=== PATIENT | female | born 1950 | race Caucasian/White ===

== ENCOUNTER 2017-06-08 10:30 | Emergency (ER) | payer OTHER ==
[~2017-06-08] VITALS: Ht 162.6 cm; Wt 72.6 kg
[2017-06-08] MEDS ORDERED: ACETAMINOPHEN 325 MG TAB PO ONE (11:00)
[2017-06-08 11:42] LABS: Basophils # (auto) 0 uL; Basophils % (auto) 0.2 % (0.0-2.0); Eosinophils # (auto) 0 uL; Hematocrit 39.7 % (36.0-46.0); Hemoglobin 13.5 g/dL (12.2-16.2); Lymphocytes # (auto) 1.1 uL; Lymphocytes % (auto) 13.7 % (10.0-50.0); Mean Corpuscular Hemoglobin 31.2 pg (28.0-32.0); Monocytes # (auto) 0.5 uL; Monocytes % (auto) 6.6 % (0.0-12.0); Neutrophils # (auto) 6.5 uL; Neutrophils % (auto) 79.5 % (37.0-80.0); Platelet Count (auto) 139 10^3/uL (140-450); White Blood Cell 8.1 10^3/uL (4.4-10.8)
[2017-06-08 11:56] LABS: Albumin 3.6 g/dL (3.4-5.0); Alkaline Phosphatase 81 U/L (45-117); Anion Gap 9 (5-15); Aspartate Aminotransferase 28 U/L (15-37); BUN/Creatinine Ratio 12.6; Bilirubin, Total 0.4 mg/dL (0.2-1.0); Blood Urea Nitrogen 13 mg/dL (7-18); Calcium 8.4 mg/dL (8.5-10.1); Carbon Dioxide 24 mmol/L (21-32); Chloride 108 mmol/L (98-107); GFR African American 69 mL/min; GFR Non-African American 57 mL/min; Glucose 109 mg/dL (74-106); Lactic Acid w/Reflex 2.3 mmol/L (0.4-2.0); Magnesium 2.5 mg/dL (1.6-2.6); Potassium 4.1 mmol/L (3.5-5.1); Sodium 141 mmol/L (136-145); Total Protein 7.5 g/dL (6.4-8.2)
[2017-06-08] MEDS ORDERED: BUPRTAB3 PO (11:59)
[2017-06-08] MEDS ORDERED: HYDR-4683 PO (11:59)
[2017-06-08] MEDS ORDERED: OLAN20TA13 PO (12:03)
[2017-06-08] MEDS ORDERED: DOCU-94 PO (12:03)
[2017-06-08] MEDS ORDERED: TRAZ150T79 PO (12:03)
[2017-06-08] MEDS ORDERED: TIZA4TAB9 PO (12:03)
[2017-06-08] MEDS ORDERED: GABA600T PO (12:03)
[2017-06-08 12:19] LABS: REFLEX LACTIC ACID YES OR NO YES
[2017-06-08 14:25] LABS: Urine Bilirubin Negative (Negative); Urine Blood 1+ /uL (Negative); Urine Color Yellow (Yellow); Urine Glucose Normal (Normal); Urine Hyaline Cast FEW /lpf (0 - 2); Urine Ketone Negative (Negative); Urine Mucus FEW (None Seen); Urine Nitrite Negative (Negative); Urine RBC 5 /hpf (0 - 4); Urine Squamous Epithelial Cell FEW /hpf (<5); Urine Urobilinogen Normal (Negative)
[2017-06-08 15:22] VITALS: BP 103/63
== END 2017-06-08 16:15 | disposition home or self-care (01) ==
LOC: ER 10:30
DX: G89.29 Other chronic pain (principal); M54.5 Low back pain; R42 Dizziness and giddiness; R41.82 Altered mental status, unspecified; Z88.1 Allergy status to other antibiotic agents; Z88.6 Allergy status to analgesic agent; Z90.710 Acquired absence of both cervix and uterus; Z79.899 Other long term (current) drug therapy; W18.39XA Other fall on same level, initial encounter; Y93.89 Activity, other specified; Y92.89 Other specified places as the place of occurrence of the external cause; Y99.8 Other external cause status
CPT/HCPCS: 36415; 71010; 72100; 80053; 81001; 83605; 83735; 84484; 85025; 87040; 93005; 94761

== ENCOUNTER 2025-07-12 11:02 | Emergency (ER) | payer OTHER, MEDICAID ==
[~2025-07-12] VITALS: Ht 165.1 cm; Wt 64.4 kg
[~2025-07-12 11:02] MED LIST: BUPRTAB3 PO; DOCU-94 PO; GABA600T PO; HYDR-4833 PO; OLAN20TA PO; TIZA4TAB9 PO; TRAZ1TAB12 PO
[2025-07-12 11:16] VITALS: BP 128/82; PULSE 87; RESP 20; TEMP 98; O2SAT 97
--- NOTE | 2025-07-12 11:28 | ED.PDOC ---
Arturo. trauma (HPI) HPI Comments A 75 YEAR OLD FEMALE PRESENTS TO THE ED WITH COMPLAINT OF LOWER BACK PAIN AND HEADACHE STATUS POST FALL. PATIENT STATES SHE ACCIDENTALLY TRIPPED AND FELL WHEN WALKING DOWN THE HALLWAY 6 DAYS AGO. PATIENT REPORTS SHE FELL BACKWARDS IN HIS NOW EXPERIENCING LOWER BACK PAIN AND A HEADACHE DUE TO HITTING HER HEAD ON THE GROUND. PATIENT NOTES THAT SHE HAS A HISTORY OF CHRONIC BACK PAIN AND HAS A PAIN PUMP THAT INFUSES DILAUDID FOR PAIN MANAGEMENT. PATIENT DENIES SADDLE ANESTHESIA, URINARY INCONTINENCE, NECK INJURY, LOC, BOWEL INCONTINENCE, FEVER, CHILLS, SHORTNESS OF BREATH, CHEST PAIN, ABDOMINAL PAIN, NAUSEA, VOMITING, OR OTHER COMPLAINTS. NO OTHER SYMPTOMS OR MODIFYING FACTORS AT THIS TIME. PATIENT IS ALERT, ORIENTED X 4, AND HAS STEADY GAIT. Chief Complaint: Fall Injury Time Seen by MD: 11:07 Primary Care Provider: LUCAS Reviewed notes: Nurses Notes, Medications, Allergies Allergies: Coded Allergies: Levofloxacin (Verified Allergy, Unknown, 06/08/17) Morphine (Verified Allergy, Unknown, 06/08/17) Uncoded Allergies: PLASTIC (Allergy, Unknown, 06/08/17) EMERALD (Allergy, Unknown, 06/08/17) TAPE (Allergy, Unknown, 06/08/17) Home Meds Reported Medications Docusate Sodium (Colace) 100 Mg Cap, 300 MG PO HS, CAP 06/08/17 Trazodone Hcl (Trazodone Hcl) 150 Mg Tab, 1 TAB PO QPM, #30 TAB 1 Refill 06/08/17 Gabapentin (Neurontin) 600 Mg Tab, 800 MG PO TID, TAB 06/08/17 Olanzapine (Zyprexa) 20 Mg Tab, 45 MG PO HS, TAB 06/08/17 Tizanidine Hydrochloride (Zanaflex) 4 Mg Tab, 4 MG PO HS, TAB 06/08/17 Bupropion HCl (Wellbutrin Xl) 300 Mg Tab, 300 MG PO DAILY, TAB 06/08/17 Hydrocodone-Acetaminophen ([place] 5/325MG) 1 Tab Tb, 1 TAB PO QID, #90 TAB 06/08/17 Information Source: Patient Mode of Arrival: Ambulatory Severity: Moderate Timing: Days Duration: Since onset, Days Prehospital treatment: None Location: Back, Head Location of laceration: None Mechanism: Fall Associated signs and symtoms: Headache Past Medical History PAST MEDICAL HISTORY: Arthritis, HTN Past Medical History (Other): DDD/CHRONIC LOWER BACK PAIN Surgical History: Hysterectomy INTERLOCKER MAINTAINER History: No Pertinent INTERLOCKER MAINTAINER History Family History Family History: Reviewed,noncontributory to illness Social History Smoker: Non-Smoker Alcohol: Denies ETOH Use Drugs: Denies Drug Use Lives In: Home Constitutional: denies: chills, diaphoresis, fatigue, fever, malaise, sweats, weakness, others EENTM: denies: blurred vision, double vision, ear bleeding, ear discharge, ear drainage, ear pain, ear ringing, eye pain, eye redness, hearing loss, mouth pain, mouth swelling, nasal discharge, nose bleeding, nose congestion, nose pain, photophobia, tearing, throat pain, throat swelling, voice changes, others Respiratory: denies: cough, hemoptysis, orthopnea, SOB at rest, shortness of breath, SOB with excertion, stridor, wheezing, others Cardiovascular: denies: chest pain, dizzy spells, diaphoresis, Dyspnea on exertion, edema, irregular heart beat, left arm pain, lightheadedness, palpitations, PND, syncope, others Gastrointestinal: denies: abdomen distended, abdominal pain, blood streaked bowels, constipated, diarrhea, dysphagia, difficulty swallowing, hematemesis, melena, nausea, poor appetite, poor fluid intake, rectal bleeding, rectal pain, vomiting, others Genitourinary: denies: abnormal vagina bleeding, burning, dyspareunia, dysuria, flank pain, frequency, hematuria, incontinence, pain, , vagina discharge, urgency, others Neurological: reports: headache; denies: dizziness, fainting, left sided numbness, left sided weakness, numbness, paresthesia, pre-existing deficit, right sided numbness, right sided weakness, seizure, speech problems, tingling, tremors, weakness, others Musculoskeletal: reports: back pain, muscle pain; denies: gout, joint pain, joint swelling, muscle stiffness, neck pain, others Integumetry: denies: bruises, change in color, change in hair/nails, dryness, laceration, lesions, lumps, rash, wounds, others Allergic/Immunocompromised: denies: Difficulty Healing, Frequent Infections, Hives, Itching, others Hematologic/Lymphatic: denies: anemia, blood clots, easy bleeding, easy bruising, swollen glands, others Endocrine: denies: excessive hunger, excessive sweating, excessive thirst, excessive urination, flushing, intolerance to cold, intolerance to heat, unexplained weight gain, unexplained weight loss, others Psychiatric: denies: anxiety, bipolar disorder, depression, hopeless, panic disorder, schizophrenia, sleepless, suicidal, others All Other Systems: Reviewed and Negative Physical Exam General Appearance: No Apparent Distress, Normal HEENT: Head (NO CONTUSIONS AND HEMATOMAS OF SCALP, NO DEFORMITY. ), Normal ENT Inspection, PERRL/EOMI, Pharynx Normal, TMs Normal Neck: Full Range of Motion, Non-Tender, Normal, Normal Inspection Respiratory: Chest Non-Tender, Lungs Clear, No Accessory Muscle Use, No Respi ratory Distress, Normal Breath Sounds Cardiovascular: No Edema, No JVD, No Murmur, No Gallop, Normal Peripheral Pulses, Regular Rate/Rhythm Breast Exam: Deferred Gastrointestinal: No Organomegaly, Non Tender, No Pulsatile Mass, Normal Bowel Sounds, Soft Genitalia: Deferred Pelvic: Deferred Rectal: Deferred Extremities: No calf tenderness, Normal capillary refill, Normal inspection, Normal range of motion, Non-tender, No pedal edema Musculoskeletal : Location: Bilateral Extremity Location: Back Apperance: Tenderness: Moderate (TENDERNESS AND MUSCLE SPASM ON LOWER BACK, NO BONY TENDERNESS AND SWELLING, NO DEFORMITY. ) Neurologic: Alert, nursing educator II-XII nml as Tested, No Motor Deficits, Normal Affect, Normal Mood, No Sensory Deficits Cerebellar Function: Normal Reflexes: Normal Skin: Dry, Normal Color, Warm Peripheral Pulses: 2+ carotid (R), 2+ carotid (L), 2+ dorsalis pedis (R), 2+ dorsalis pedis (L) Lymphatic: No Adenopathy Was a procedure done? Was a procedure done?: No Differential Diagnosis Multiple Trauma: Closed Head Injury, Fractures, Cerebral Contusion, Spine Injury, Abrasions, Contusion, Hematoma, Other (LOW BACK STRAIN, CHRONIC PAIN EXACERBATION) Neck Injury: N/A X-Ray, Labs, Meds, VS Vital Signs Date Time Temp Pulse Resp B/P (MAP) Pulse Ox O2 Delivery O2 Flow Rate FiO2 07/12/25 11:16 98.0 87 20 128/82 (97) 97 98.0 07/12/25 11:16 87 20 97 Room Air 07/12/25 11:07 98.0 87 20 128/82 97 98.0 ORDERING PHYSICIAN: SHAKA SCHWARTZ PROCEDURE(s): HWOCT - HEAD WITHOUT CONTRAST REASON: HEAD PAIN POST FALL ORDER NUMBER(s): [id number], ACCESSION NUMBER(s): [id number] EXAM: CT HEAD WITHOUT CONTRAST INDICATION: HEAD PAIN POST FALL TECHNIQUE: CT of the head without intravenous contrast. Radiation Dose : 1. Head: CT Dose: CTDI volume is 54.7 mGy. Dose-length product is 1077.78 mGy*cm The dose indicators for CT are the volume Computed Tomography (CT) Dose Index (CTDIvol) and the Dose Length Product (DLP), and are measured in units of mGy and mGy-cm, respectively. These indicators are not patient dose, but values generated from the CT scanner acquisition factors. The report includes radiation exposure data for exposures received during this examination. COMPARISON: None FINDINGS: Bilateral basal ganglia calcification. Moderately severe hyperostosis of the frontal bones bilaterally. There is no evidence of acute intracranial hemorrhage, extra-axial collection, mass effect, midline shift, herniation or hydrocephalus. The ventricles, sulci and cisterns are age appropriate. The vásquez-white differentiation is intact. Patchy periventricular and subcortical white matter hypoattenuation is nonspecific but may be related to small vessel ischemic disease. The visualized paranasal sinuses and mastoid air cells are clear. The surrounding soft tissues and osseous structures are unremarkable. IMPRESSION: 1. No acute intracranial abnormality. Radiation optimization: All CT scans at this facility use at least one of these dose optimization techniques: automated exposure control mA and/or kV adjustment per patient size (includes targeted exams where dose is matched to clinical indication) or iterative reconstruction. ATED BY: ESHA GARCIA MD DICTATED DATE/TIME: 07/12/251154 SIGNED BY: ESHA GACRIA MD SIGNED DATE/TIME: 07/12/251154 CC: ORDERING PHYSICIAN: SHAKA SCHWARTZ PROCEDURE(s): LUMB2 - LUMBAR SPINE 3 VIEW REASON: FALL ORDER NUMBER(s): [id number], ACCESSION NUMBER(s): [id number] INDICATION: FALL TECHNIQUE: 3 views of the lumbar spine were obtained. COMPARISON: None FINDINGS: There are no acute fractures or subluxations. Chronic appearing mild compression fracture of the T10 vertebral body. Lumbar spinal fixation hardware and intervertebral disc spacer material at L5, L4 and L3. Diffuse osteopenia. Vascular atherosclerotic calcifications are present. IMPRESSION: No acute fracture or subluxation. ATED BY: CHIDI YO MD DICTATED DATE/TIME: 07/12/25 1150 SIGNED BY: CHIDI YO MD SIGNED DATE/TIME: 07/12/25 1150 CC: X-Ray, Labs, Meds, VS Comment EXTERNAL MEDICAL RECORDS REVIEWED: [NONE] INDEPENDENT HISTORIANS: [NONE] SOCIAL DETERMINANTS OF HEALTH: [NONE] LABS ORDERED: NONE REVIEWED AND INTERPRETED RESULTS: NONE IMAGING ORDERED: XR L-SPINE, CT BRAIN TREATMENTS ORDERED: NONE PROCEDURES PERFORMED: NONE CRITICAL CARE TIME: NONE I HAVE DISCUSSED THE PATIENT WITH THE ATTENDING PHYSICIAN DR. TORRES AND HE AGREES WITH THE PATIENT'S PLAN OF CARE AND DISPOSITION. BASED ON HISTORY OF PRESENT ILLNESS, AND PHYSICAL EXAM, PATIENT WILL BE DISCHARGED HOME. PT HAS PAIN MEDICATION AT HOME. SHARED DECISION MAKING: PATIENT INSTRUCTED TO FOLLOW UP WITH PRIMARY CARE PROVIDER IN 1-2 DAYS FOR RE-EVALUATION OF SYMPTOMS. PATIENT VERBALIZES UNDER STANDING TO RETURN TO ED FOR NEW OR WORSENING SYMPTOMS OR IF FOLLOW UP WITH PCP CANNOT BE OBTAINED. PATIENT FEELS COMFORTABLE GOING HOME AT THIS TIME. ALL QUESTIONS ADDRESSED AT TIME OF DISCHARGE. Images Reviewed?: Images reviewed and evaluated by me Time of 1ST Reevaluation: 12:21 Reevaluation 1ST: Improved Patient Education/Counseling: Diagnosis, Treatment, Need For Follow Up Family Education/Counseling: Diagnosis, Treatment, Need For Follow Up Medical Screening: No EMC Exist At This Time Departure 1 Departure Time of Disposition: 12:21 Impression: Primary Impression: Acute exacerbation of chronic low back pain Additional Impressions: Acute headache Qualified Codes: G44.319 - Acute post-traumatic headache, not intractable Status post fall Disposition: 01 HOME / SELF CARE / HOMELESS Condition: Stable Additional Instructions: FOLLOW-UP WITH PCP IN 1 TO 2 DAYS. RETURN TO ED FOR ANY NEW OR WORSENING SYMPTOMS. Discharged With: Self Critical Care Note Critical Care Time?: No Stability Stability form required: No I personally scribed for SHAKA SCHWARTZ ([email or web address]) on 07/12/25 at 11:28. El ectronically submitted by Kj Olmos ([email or web address]). I personally scribed for SHAKA SCHWARTZ ([email or web address]) on 07/12/25 at 12:03. El ectronically submitted by Kj Olmos ([email or web address]). I personally scribed for SHAKA SCHWARTZ ([email or web address]) on 07/12/25 at 12:12. El ectronically submitted by Kj Olmos ([email or web address]). SHAKA SCHWARTZ Jul 12, 2025 11:28
--- NOTE | 2025-07-12 11:52 | DVH ---
INDICATION: FALL TECHNIQUE: 3 views of the lumbar spine were obtained. COMPARISON: None FINDINGS: There are no acute fractures or subluxations. Chronic appearing mild compression fracture of the T10 vertebral body. Lumbar spinal fixation hardware and intervertebral disc spacer material at L5, L4 and L3. Diffuse osteopenia. Vascular atherosclerotic calcifications are present. IMPRESSION: No acute fracture or subluxation.
--- NOTE | 2025-07-12 11:57 | DVH ---
EXAM: CT HEAD WITHOUT CONTRAST INDICATION: HEAD PAIN POST FALL TECHNIQUE: CT of the head without intravenous contrast. Radiation Dose : 1. Head: CT Dose: CTDI volume is 54.7 mGy. Dose-length product is 1077.78 mGy*cm The dose indicators for CT are the volume Computed Tomography (CT) Dose Index (CTDIvol) and the Dose Length Product (DLP), and are measured in units of mGy and mGy-cm, respectively. These indicators are not patient dose, but values generated from the CT scanner acquisition factors. The report includes radiation exposure data for exposures received during this examination. COMPARISON: None FINDINGS: Bilateral basal ganglia calcification. Moderately severe hyperostosis of the frontal bones bilaterally. There is no evidence of acute intracranial hemorrhage, extra-axial collection, mass effect, midline shift, herniation or hydrocephalus. The ventricles, sulci and cisterns are age appropriate. The vásquez-white differentiation is intact. Patchy periventricular and subcortical white matter hypoattenuation is nonspecific but may be related to small vessel ischemic disease. The visualized paranasal sinuses and mastoid air cells are clear. The surrounding soft tissues and osseous structures are unremarkable. IMPRESSION: 1. No acute intracranial abnormality. Radiation optimization: All CT scans at this facility use at least one of these dose optimization techniques: automated exposure control mA and/or kV adjustment per patient size (includes targeted exams where dose is matched to clinical indication) or iterative reconstruction.
== END 2025-07-12 12:14 | disposition home or self-care (01) ==
LOC: ER 11:02
DX: G89.29 Other chronic pain (principal); M54.50 Low back pain, unspecified; R51.9 Headache, unspecified; I10 Essential (primary) hypertension; M19.90 Unspecified osteoarthritis, unspecified site; Z79.899 Other long term (current) drug therapy; Z90.710 Acquired absence of both cervix and uterus; Z91.048 Other nonmedicinal substance allergy status; Z88.1 Allergy status to other antibiotic agents; Z88.5 Allergy status to narcotic agent; W01.0XXA Fall on same level from slipping, tripping and stumbling without subsequent striking against object, initial encounter; Y93.01 Activity, walking, marching and hiking; Y92.89 Other specified places as the place of occurrence of the external cause; Y99.8 Other external cause status
CPT/HCPCS: 70450; 72100